=== PATIENT | male | born 1940 | race Caucasian/White ===

== ENCOUNTER → 2016-09-28 10:26 | Outpatient (CLI) | payer MEDICARE, OTHER ==
[2009-07-30 08:39] VITALS: BMI 36.4
== END | disposition home or self-care (01) ==
LOC: D.CT 10:26
DX: R93.8 Abnormal findings on diagnostic imaging of other specified body structures (principal)

== ENCOUNTER → 2020-10-08 11:28 | Outpatient (CLI) | payer MEDICARE, OTHER ==
[2020-05-29 09:28] VITALS: BMI 31.0
[~2020-10-08 11:28] MED LIST: AMIODARONE HCL200 MG PO; BAYER CHEWABLE81 MG PO; GEMFIBROZIL600 MG PO; GLUCOPHAGE500 MG PO; GLUCOTROL 5 MG T5 MG PO; HYDROCHLOROTH12.5 M1 PO; LISINOPRIL40 MG PO; LOPRESSOR25 MG PO; NORVASC5 MG PO; PERCOCET 5-3251 TAB PO; ZOCOR20 MG PO; ZYLOPRIM300 MG PO
== END | disposition home or self-care (01) ==
LOC: D.LAB 11:28
PROVIDERS: ATTEND Internal Medicine Pulmonary Disease
DX: J44.9 Chronic obstructive pulmonary disease, unspecified (principal); Z11.52 Encounter for screening for COVID-19

== ENCOUNTER → 2020-10-14 09:32 | Outpatient (CLI) | payer MEDICARE, OTHER ==
[2020-05-29 09:28] VITALS: BMI 31.0
== END | disposition home or self-care (01) ==
LOC: D.RT 09:00
PROVIDERS: ATTEND Nurse Practitioner Family
DX: J44.9 Chronic obstructive pulmonary disease, unspecified (principal)